=== PATIENT | male | born 1955 | race Caucasian/White ===

== ENCOUNTER → 2016-05-27 | Day surgery (SDC) | payer MEDICARE, OTHER ==
[~2016-05-27] MED LIST: ALBU6.7H INH; ASPI81 PO; IMDU30TA PO; KETOROLAC TROMETHAMINE 30 MG/ML (IVP) VIAL IV PUSH ONE; LACTATED RINGER'S 1000 ML INJ 1,000 ML ONE; METO25 PO; PRAV40TA PO; PRIN20TA2 PO; PROPOFOL 200 MG/20 ML AMP IV ONE
--- NOTE | 2016-05-27 11:14 | GIPROC ---
[facility] [address] [facility], [id number] EGD PROCEDURE REPORT EXAM DATE: 05/27/2016 PATIENT NAME: Jonnathan Kelly MR #: [id number] BIRTHDATE: 1955 ATTENDING: Claude Mueller MD ORDER #: [id number] MISSION COMMANDER: Ceci Thomson RN STATUS: outpatient INDICATIONS: The patient is a 60 yr old male here for an EGD due to anemia PROCEDURE PERFORMED: EGD w/ biopsy MEDICATIONS: None and Per Anesthesia. TOPICAL ANESTHETIC: CONSENT: The patient understands the risks and benefits of the procedure and understands that these risks include, but are not limited to: sedation, allergic reaction, infection, perforation and/or bleeding. Alternative means of evaluation and treatment include, among others: physical exam, x-rays, and/or surgical intervention. The patient elects to proceed with this endoscopic procedure. medical equipment was checked for proper function. Hand hygiene and appropriate measures for infection prevention was taken. After the risks, benefits and alternatives of the procedure were thoroughly explained, Informed consent was verified, confirmed and timeout was successfully executed by the treatment team. The patient was anesthetized with topical anesthesia and the EC-3490Li ([id number]) endoscope was introduced through the mouth and advanced to the second portion of the duodenum. Retroflexed views revealed gastric diverticulum in the fundus The gastroscope was then slowly withdrawn and removed. The endoscopy was otherwise normal. Duodenal biopsies taken. ADVERSE EVENTS: There were no complications. IMPRESSIONS: 1. Normal endoscopy otherwise 2. Retroflexed views revealed gastric diverticulum in the fundus 3. Gastric diverticulum RECOMMENDATIONS: 1. Await biopsy results. Biopsy results will not be ready for 7-10 days. If you don't hear from us in two weeks, call our office for biopsy results. 2. Follow-up: GI clinic 4 week(s) PATIENT CONDITION: stable DISPOSITION: Home REPEAT EXAM: Claude Mueller MD eSigned: Claude Mueller MD 05/27/2016 11:14 AM cc: Damion Tan [facility] [place] PATIENT NAME: Jonnathan Kelly MR#: [id number]
--- NOTE | 2016-05-27 11:16 | GIPROC ---
[facility] [address] [facility], [address] COLONOSCOPY PROCEDURE REPORT EXAM DATE: 05/27/2016 PATIENT NAME: Jonnathan Kelly MR #: [id number] BIRTHDATE: 1955 ENDOSCOPIST: Claude Mueller MD ORDER #: [id number] WOOD BOX MAKER: Ceci Thomson RN STATUS: outpatient INDICATIONS: The patient is a 60 yr old male here for a colonoscopy due to anemia, non-specific and rectal bleeding PROCEDURE PERFORMED: Colonoscopy, diagnostic MEDICATIONS: None and Per Anesthesia. PREP QUALITY: good ESTIMATED BLOOD LOSS: None CONSENT: The patient understands the risks and benefits of the procedure and understands that these risks include, but are not limited to: sedation, allergic reaction, infection, perforation and/or bleeding. Alternative means of evaluation and treatment include, among others: physical exam, x-rays, and/or surgical intervention. The patient elects to proceed with this endoscopic procedure. medical equipment was checked for proper function. Hand hygiene and appropriate measures for infection prevention was taken. After the risks, benefits and alternatives of the procedure were thoroughly explained, Informed consent was verified, confirmed and timeout was successfully executed by the treatment team. A digital exam revealed no abnormalities of the rectum The EC-[id number] ([id number]) endoscope was introduced through the anus and advanced to the cecum, which was identified by both the appendix and ileocecal valve. The instrument was then slowly withdrawn as the colon was fully examined. COLON FINDINGS: Moderate diverticulosis was noted in the sigmoid colon. The colon mucosa was otherwise normal. Retroflexed views revealed no abnormalities The scope was then completely withdrawn from the patient and the procedure terminated. PROCEDURE WITHDRAWAL TIME:7minutes ADVERSE EVENTS: There were no complications. IMPRESSIONS: 1. Moderate diverticulosis was noted in the sigmoid colon 2. The colon mucosa was otherwise normal 3. Retroflexed views revealed no abnormalities 4. Revealed no abnormalities of the rectum RECOMMENDATIONS: 1. High fiber diet. Avoid nuts, seeds, and popcorn. Chew your food well. 2. Yearly hemoccult 3. Follow-up: GI Clinic 4 week(s) RECALL: Return 5 years Colonoscopy Claude Mueller MD eSigned: Claude Mueller MD 05/27/2016 11:16 AM cc:
== END | disposition home or self-care (01) ==
LOC: ESDC 08:42
PROVIDERS: ATTEND Internal Medicine Gastroenterology
DX: D64.9 Anemia, unspecified (principal); K62.5 Hemorrhage of anus and rectum; K57.90 Diverticulosis of intestine, part unspecified, without perforation or abscess without bleeding; R10.9 Unspecified abdominal pain
CPT/HCPCS: 00740; 00810; 43239; 45378; 88305; J1885; J3010; J7120